=== PATIENT | male | born 1990 | race African-American/Black ===

== ENCOUNTER 2024-01-11 18:35 | Emergency (ER) | payer OTHER ==
[~2024-01-11] VITALS: Ht 175.3 cm; Wt 82.0 kg
[2024-01-11 19:47] LABS: BASOPHILS % (AUTO) 1.3 % (0.0-2.0); EOSINOPHILS % (AUTO) 2.7 % (1.0-6.0); HEMATOCRIT 43.6 % (41-53); HEMOGLOBIN 14.4 g/dL (13.5-17.5); LYMPHOCYTES # (AUTO) 1.2 K/uL (1.0-4.8); LYMPHOCYTES % (AUTO) 17.6 % (22.0-44.0); MEAN CORPUSCULAR HEMOGLOBIN 30.4 pg (26.0-34.0); MEAN CORPUSCULAR HGB CONC 32.9 G/dL (31.0-37.0); MEAN CORPUSCULAR VOLUME 92 fL (80-100); MONOCYTES # (AUTO) 0.6 K/uL (0.1-1.0); MONOCYTES % (AUTO) 9.2 % (2.0-9.0); NEUTROPHILS # (AUTO) 4.9 K/uL (1.8-7.7); NEUTROPHILS % (AUTO) 69.2 % (40.0-70.0); PLATELET COUNT (AUTO) 208 K/uL (150-450); RED BLOOD CELL COUNT(AUTO) 4.73 MIL/uL (4.50-5.90); RED CELL DISTRIBUTION WIDTH 13.3 % (11.5-14.5)
[2024-01-11 19:56] LABS: ANION GAP 8 mmol/L (8-16); CALCIUM, TOTAL 9.4 mg/dL (8.8-10.5); CARBON DIOXIDE 27 mmol/L (22-29); CHLORIDE 105 mmol/L (98-107); CREATININE 1.06 mg/dL (0.60-1.30); GLOMERULAR FILTR. RATE CALC > 60 mL/min (>60); GLUCOSE,RANDOM 102 mg/dL (70-110); LIPASE 35 U/L (16-77); POTASSIUM 4.6 mmol/L (3.5-5.1); SODIUM SERUM 140 mmol/L (136-145); UREA NITROGEN, BLOOD 14 mg/dL (7-18)
[2024-01-11 19:58] LABS: ALCOHOL, BLOOD (SERUM) < 3 mg/dL (0-10)
[2024-01-11 20:04] LABS: LACTIC ACID 1.4 mmol/L (0.4-2.0)
[2024-01-11] MEDS: SODIUM CHLORIDE 0.9% 2,000 ML IV ONE (20:19)
[2024-01-11 20:21] LABS: ALCOHOL, URINE DRUG SCREEN NEGATIVE (NEGATIVE); AMPHET/METH SCREEN,URINE NEGATIVE (NEGATIVE); BARBITURATE SCREEN, URINE NEGATIVE (NEGATIVE); BENZODIAZEPINES SCREEN,URINE NEGATIVE (NEGATIVE); CANNABINOID SCREEN,URINE NEGATIVE (NEGATIVE); COCAINE SCREEN,URINE NEGATIVE (NEGATIVE); METHADONE SCREEN, URINE NEGATIVE (NEGATIVE); OPIATE SCREEN,URINE NEGATIVE (NEGATIVE); PHENCYCLIDINE SCREEN,URINE NEGATIVE (NEGATIVE)
[2024-01-11] MEDS ORDERED: IBUP-1554 PO (22:22)
[2024-01-11] MEDS ORDERED: ACET-2080 PO (22:22)
[2024-01-11 22:36] LABS: APPEARANCE,CSF CLEAR (CLEAR); CSF TUBE NUMBER 4
[2024-01-11 22:37] LABS: COLOR,CSF COLORLESS (COLORLESS); LYMPHOCYTES1,CSF 0 %; MONOCYTES1,CSF 0 %; NEUTROPHILS1,CSF 0 %
[2024-01-11 22:39] LABS: GLUCOSE, CSF 67 mg/dL (50-80); TOTAL PROTEIN, CSF 27 mg/dL (15-45)
[2024-01-11] MEDS: ACETAMINOPHEN/CODEINE 300-30 MG TABLET PO ONE (23:40)
[2024-01-11] MEDS: IBUPROFEN 600 MG TABLET PO ONE (23:41)
[2024-01-11 23:43] VITALS: BP 110/60; PULSE 72; RESP 16; TEMP 98.5
== END 2024-01-12 00:06 | disposition home or self-care (01) ==
LOC: EMS 18:35
DX: R51.9 Headache, unspecified (principal); Z79.899 Other long term (current) drug therapy
CPT/HCPCS: 62270; 99285; 96360; 70450; 80048; 87205; 82945; 83605; 83690; 84157; 85025; 89051; 36415; 87075; 87070; 80307; G0480; J7030